=== PATIENT | female | born 1985 | race Caucasian/White ===

== ENCOUNTER 2022-05-02 09:01 | Emergency (ER) | payer SELFPAY ==
[2022-05-02 09:46] LABS: Urine Blood Trace-intact (Negative); Urine Glucose Negative (Negative); Urine Protein Negative (Negative); Urine Specific Gravity 1.025 (1.005-1.030)
--- NOTE | 2022-05-02 09:49 | EDPHYS ---
Physician Documentation [facility] Name: Zeeshan Bynum Age: 36 yrs Sex: Female : 1985 Arrival Date: 05/02/2022 Time: 09:03 Bed Waiting Private MD: ED Physician Ray George HPI: 05/02 09:48 This 36 yrs old Female presents to ER via Ambulatory with complaints of Pain With pm1 Urination. 09:48 The patient presents with urinary symptoms, dysuria. Onset: The symptoms/episode pm1 began/occurred 2 week(s) ago. Modifying factors: The symptoms are alleviated by nothing, the symptoms are aggravated by urinating. Associated signs and symptoms: Pertinent negatives: fever, Abdominal pain, flank pain, nausea/vomiting/diarrhea. Severity of symptoms: in the emergency department the symptoms are unchanged. The patient's method of control includes tubal ligation. The patient has experienced similar episodes in the past, a few times, today's symptoms are similar, to previous UTI. The patient has not recently seen a physician. 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 - Social history:: Smoking status: Patient reports the use of cigarette tobacco products, smokes one pack cigarettes per day. ROS: 09:48 Positive for urinary symptoms, burning with urination, Negative for flank pain, pm1 Abdominal pain. 09:48 Constitutional: Negative for fever, chills, and weight loss, Cardiovascular: Negative for chest pain, palpitations, and edema, Respiratory: Negative for shortness of breath, cough, wheezing, and pleuritic chest pain, Abdomen/GI: Negative for abdominal pain, nausea, vomiting, diarrhea, and constipation, Back: Negative for injury and pain, MS/Extremity: Negative for injury and deformity, Skin: Negative for injury, rash, and discoloration, Neuro: Negative for headache, weakness, numbness, tingling, and seizure. Exam: 09:48 Constitutional: This is a well developed, well nourished patient who is awake, alert, pm1 and in no acute distress. Head/Face: Normocephalic, atraumatic. 09:48 Skin: Warm, dry with normal turgor. Normal color with no rashes, no lesions, and no evidence of cellulitis. MS/ Extremity: Pulses equal, no cyanosis. Neurovascular intact. Full, normal range of motion. 09:48 Cardiovascular: Exam negative for acute changes, Rate: normal, Rhythm: regular, Pulses: no pulse deficits are appreciated. 09:48 Respiratory: Exam negative for acute changes, respiratory distress, shortness of breath. 09:48 Abdomen/GI: Inspection: abdomen appears normal, Palpation: abdomen is soft and non-tender, in all quadrants. 09:48 Back: Exam negative for acute changes, pain, is absent, CVA tenderness, is absent. 09:48 Neuro: Exam negative for acute changes, Orientation: is normal, Mentation: is normal, Motor: moves all fours, Gait: is steady, at a normal pace, without difficulty. Vital Signs: 09:24 BP 103 / 71; Pulse 68; Resp 15; Temp 98.2; Pulse Ox 99% ; Weight 63.5 kg; Height 5 ft. jl7 4 in. (162.56 cm); Pain 8/10; 09:24 Body Mass Index 24.03 (63.50 kg, 162.56 cm) jl7 MDM: 09:18 Counseling: I had a detailed discussion with the patient and/or guardian regarding: the pm1 historical points, exam findings, and any diagnostic results supporting the discharge/admit diagnosis. 09:21 Patient medically screened. pm1 09:28 Data reviewed: vital signs. Data interpreted: Pulse oximetry: on room air is 99 %. pm1 Interpretation: normal. 05/02 09:18 Order name: Urine Microscopic Only; Complete Time: 10:12 pm1 05/02 09:47 Order name: Urine Dipstick-Ancillary; Complete Time: 09:48 EDMS 05/02 09:18 Order name: Urine Dipstick-Ancillary (obtain specimen); Complete Time: 09:44 pm1 05/02 09:18 Order name: Urine Test (obtain specimen); Complete Time: 09:44 pm1 05/02 10:13 Order name: Urine Culture EDMS Administered Medications: No medications were administered Disposition: 14:10 Co-signature as Attending Physician, Ray George DO I was immediately available on-site ms3 in the Emergency Department for consultation in the care of the patient.. Disposition Summary: 05/02/22 09:48 Discharge Ordered Location: Home pm1 Problem: new pm1 Symptoms: have improved pm1 Condition: Stable pm1 Diagnosis - UTI/ Urinary tract infection, site not specified pm1 Followup: pm1 - With: Emergency Department - When: As needed - Reason: Worsening of condition Followup: pm1 - With: Private Physician - When: 2 - 3 days - Reason: Recheck today's complaints, Continuance of care, Re-evaluation by your physician Discharge Instructions: - Discharge Summary Sheet pm1 - Urinary Tract Infection, Adult pm1 Forms: - Medication Reconciliation Form pm1 - Thank You Letter pm1 - Antibiotic Education pm1 - Prescription Opioid Use pm1 Prescriptions: - Bactrim DS 800-160 mg Oral Tablet - take 1 tablet by ORAL route every 12 hours for 10 days; 20 tablet; Refills: 0, pm1 Product Selection Permitted - Pyridium 200 mg Oral Tablet - take 1 tablet by ORAL route every 8 hours for 3 days; 9 tablet; Refills: 0, pm1 Product Selection Permitted Signatures: Dispatcher [employer] EDMS Dedrick Melendrez NP PATTERN WORKER pm1 Gerry Rivers RN RN jl7 Ray George DO DO ms3 Corrections: (The following items were deleted from the chart) 09:28 09:28 Data interpreted: Pulse oximetry: on room air is 100 %. Interpretation: normal. pm1 pm1
--- NOTE | 2022-05-02 09:49 | ER ---
Nurse's Notes [facility] Name: Zeeshan Bynum Age: 36 yrs Sex: Female : 1985 Arrival Date: 05/02/2022 Time: 09:03 Bed Waiting Private MD: Diagnosis: UTI/ Urinary tract infection, site not specified Presentation: 05/02 09:24 Chief complaint: Patient states: Burning with urination x 2 weeks. Coronavirus screen: jl7 At this time, the client does not indicate any symptoms associated with coronavirus-19. Ebola Screen: No symptoms or risks identified at this time. Initial Sepsis Screen: Does the patient meet any 2 criteria? No. Patient's initial sepsis screen is negative. Does the patient have a suspected source of infection? No. Patient's initial sepsis screen is negative. Risk Assessment: Do you want to hurt yourself or someone else? Patient reports no desire to harm self or others. Onset of symptoms was April 18, 2022. 09:24 Method Of Arrival: Ambulatory [facility] 09:24 Acuity: DAHLIA 3 jl7 Triage Assessment: :27 General: Appears in no apparent distress. uncomfortable, Behavior is calm, cooperative, jl7 appropriate for age. Pain: Complains of pain in with urination Pain currently is 8 out of 10 on a pain scale. Neuro: Level of Consciousness is awake, alert, obeys commands, Oriented to person, place, time, situation. Cardiovascular: Patient's skin is warm and dry. : Reports burning with urination. Derm: Skin is pink, warm \T\ dry. 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 - Social history:: Smoking status: Patient reports the use of cigarette tobacco products, smokes one pack cigarettes per day. Vital Signs: 09:24 BP 103 / 71; Pulse 68; Resp 15; Temp 98.2; Pulse Ox 99% ; Weight 63.5 kg; Height 5 ft. jl7 4 in. (162.56 cm); Pain 8/; 09:24 Body Mass Index 24.03 (63.50 kg, 162.56 cm) jl7 ED Course: 09:03 Patient arrived in ED. as 09:10 Dedrick Melendrez NP is PHCP. pm1 09:10 Ray George DO is Attending Physician. pm1 09:27 Triage completed. jl7 09:27 Arm band placed on right wrist. Patient placed in waiting room, Patient notified of jl7 wait time. 09:45 Urine Microscopic Only Sent. mb7 Administered Medications: No medications were administered Outcome: 09:48 Discharge ordered by MD. pm1 10:25 Patient left the ED. pm1 Signatures: Lilo Sena as Dedrick Melendrez NP SAFETY OFFICER pm1 Gerry Rivers RN RN jl7 Herminia Dejesus mbHanny
[2022-05-02 10:11] LABS: Urine Bacteria >50 /HPF (<20)
[2022-05-02 10:30] VITALS: BP 103/71; TEMP 98.2; O2SAT 99
== END 2022-05-02 10:25 | disposition home or self-care (01) ==
LOC: ER 09:01
DX: N39.0 Urinary tract infection, site not specified (principal); F17.210 Nicotine dependence, cigarettes, uncomplicated
CPT/HCPCS: 81003; 81015; 87086; 87088; 99282

== ENCOUNTER 2022-09-20 19:59 | Emergency (ER) | payer OTHER ==
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
--- NOTE | 2022-09-20 21:14 | EDPHYS ---
Physician Documentation [facility] Name: Zeeshan Bynum Age: 36 yrs Sex: Female : 1985 Arrival Date: 09/20/2022 Time: 20:02 Bed 16 Private MD: DU Physician Cruzito Porras HPI: 09/20 21:36 This 36 yrs old Female presents to ER via Ambulatory with complaints of Foot Pain, Leg snw Pain. 21:36 The patient presents with tenderness. The complaints affect the lateral aspect of left snw foot, posterior aspect of left knee, left calf, left Achilles and left heel. Context: The problem was sustained at home, resulted from an unknown cause, the patient can fully bear weight, the patient is able to ambulate, previous site of cellulitis. Onset: The symptoms/episode began/occurred suddenly, and became persistent. Associated signs and symptoms: Pertinent positives: calf tenderness, swelling, warmth. Severity of symptoms: At their worst the symptoms were moderate. The patient has experienced a previous episode, approximately 4 months ago. The patient has not recently seen a physician. 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 Last tetanus immunization: unknown. - Social history:: Smoking status: Patient reports the use of cigarette tobacco products, smokes one pack cigarettes per day. ROS: 21:34 Constitutional: Negative for fever, chills, and weight loss, Eyes: Negative for injury, snw pain, redness, and discharge, ENT: Negative for injury, pain, and discharge, Neck: Negative for injury, pain, and swelling, Cardiovascular: Negative for chest pain, palpitations, and edema, Respiratory: Negative for shortness of breath, cough, wheezing, and pleuritic chest pain, Abdomen/GI: Negative for abdominal pain, nausea, vomiting, diarrhea, and constipation, Back: Negative for injury and pain, : Negative for injury, bleeding, discharge, and swelling, Skin: Negative for injury, rash, and discoloration, Neuro: Negative for headache, weakness, numbness, tingling, and seizure, Psych: Negative for depression, anxiety, suicide ideation, homicidal ideation, and hallucinations. 21:34 MS/extremity: Positive for tenderness, warmth, of the left leg and left foot and heel of left foot and arch of left foot, pruritis. Exam: 21:35 Constitutional: This is a well developed, well nourished patient who is awake, alert, snw and in no acute distress. Head/Face: Normocephalic, atraumatic. Eyes: Pupils equal round and reactive to light, extra-ocular motions intact. Lids and lashes normal. Conjunctiva and sclera are non-icteric and not injected. Cornea within normal limits. Periorbital areas with no swelling, redness, or edema. ENT: Nares patent. No nasal discharge, no septal abnormalities noted. Tympanic membranes are normal and external auditory canals are clear. Oropharynx with no redness, swelling, or masses, exudates, or evidence of obstruction, uvula midline. Mucous membranes moist. Neck: Trachea midline, no thyromegaly or masses palpated, and no cervical lymphadenopathy. Supple, full range of motion without nuchal rigidity, or vertebral point tenderness. No Meningismus. Chest/axilla: Normal chest wall appearance and motion. Nontender with no deformity. No lesions are appreciated. Cardiovascular: Regular rate and rhythm with a normal S1 and S2. No gallops, murmurs, or rubs. Normal PMI, no JVD. No pulse deficits. Respiratory: Lungs have equal breath sounds bilaterally, clear to auscultation and percussion. No rales, rhonchi or wheezes noted. No increased work of breathing, no retractions or nasal flaring. Abdomen/GI: Soft, non-tender, with normal bowel sounds. No distension or tympany. No guarding or rebound. No evidence of tenderness throughout. Back: No spinal tenderness. No costovertebral tenderness. Full range of motion. MS/ Extremity: Pulses equal, no cyanosis. Neurovascular intact. Full, normal range of motion. Neuro: Awake and alert, GCS 15, oriented to person, place, time, and situation. Cranial nerves II-XII grossly intact. Motor strength 5/5 in all extremities. Sensory grossly intact. Cerebellar exam normal. Normal gait. Psych: Awake, alert, with orientation to person, place and time. Behavior, mood, and affect are within normal limits. 21:35 Skin: Appearance: normal except for affected area, area from left arch, heel, and up posterior leg to flexor surface of knee with irritation, evidence of scratching, warmth to distal knee. Vital Signs: 20:15 BP 126 / 89; Pulse 78; Resp 20; Temp 98.0; Pulse Ox 100% ; Weight 70.31 kg; Height 5 kb3 ft. 5 in. (165.10 cm); Pain 6/10; 20:15 Body Mass Index 25.79 (70.31 kg, 165.10 cm) kb3 MDM: 20:47 Patient medically screened. snw Administered Medications: 21:38 Drug: Doxycycline 100 mg Route: PO; jb4 21:40 Follow up: Response: Medication administered at discharge. jb4 21:38 Drug: traMADol 50 mg Route: PO; jb4 21:40 Follow up: Response: Medication administered at discharge. jb4 Disposition: 09/21 02:10 Co-signature as Attending Physician, Cruzito Porras MD I agree with the assessment and rt plan of care. Disposition Summary: 09/20/22 21:13 Discharge Ordered Location: Home snw Condition: Stable snw Diagnosis - Cellulitis of left lower limb snw Followup: snw - With: Emergency Department - When: As needed - Reason: Worsening of condition Followup: snw - With: Private Physician - When: 2 - 3 days - Reason: Recheck today's complaints, Continuance of care, Re-evaluation by your physician Discharge Instructions: - Discharge Summary Sheet snw - Cellulitis, Adult snw - Eczema snw Forms: - Medication Reconciliation Form snw - Thank You Letter snw - Antibiotic Education snw - Prescription Opioid Use snw Prescriptions: - Zyrtec 10 mg Oral Tablet - take 1 tablet by ORAL route once daily As needed; 20 tablet; Refills: 0, snw Product Selection Permitted - Doxycycline Hyclate 100 mg Oral Tablet - take 1 tablet by ORAL route every 12 hours; 20 tablet; Refills: 0, Product snw Selection Permitted - Tramadol 50 mg Oral Tablet - take 1 tablet by ORAL route every 8 hours as needed; 12 tablet; Refills: 0, snw Product Selection Permitted - Pepcid 20 mg Oral Tablet - take 1 tablet by ORAL route once daily; 20 tablet; Refills: 0, Product snw Selection Permitted Signatures: Lesly Murrieta, SERVICES TECH-C SERVICES TECH-Csnw Benji Mo, RN RN jb4 Marsha Waters RN RN kb3 Cruzito Porras MD MD rt
--- NOTE | 2022-09-20 21:14 | ER ---
Nurse's Notes [facility] Name: Zeeshan Bynum Age: 36 yrs Sex: Female : 1985 Arrival Date: 09/20/2022 Time: 20:02 Bed 16 Private MD: Diagnosis: Cellulitis of left lower limb Presentation: 09/20 20:15 Chief complaint: Patient states: Pt reports itching, pain, swelling and redness on the kb3 bottom of her left foot that radiates into her posterior leg. Coronavirus screen: Vaccine status: Patient reports being unvaccinated. Client denies travel out of the [place] in the last 14 days. Ebola Screen: Patient negative for fever greater than or equal to 101.5 degrees Fahrenheit, and additional compatible Ebola Virus Disease symptoms Patient denies exposure to infectious person. Patient denies travel to an Ebola-affected area in the 21 days before illness onset. Initial Sepsis Screen: Does the patient meet any 2 criteria? No. Patient's initial sepsis screen is negative. Does the patient have a suspected source of infection? No. Patient's initial sepsis screen is negative. Risk Assessment: Do you want to hurt yourself or someone else? Patient reports no desire to harm self or others. Onset of symptoms was September 13, 2022. 20:15 Method Of Arrival: Ambulatory kb3 20:15 Acuity: DAHLIA 4 kb3 Triage Assessment: 20:17 General: Appears in no apparent distress. Behavior is calm, cooperative. Pain: kb3 Complains of pain in arch of left foot, heel of left foot, left Achilles and left heel Pain does not radiate. Pain currently is 6 out of 10 on a pain scale. 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 Last tetanus immunization: unknown. - Social history:: Smoking status: Patient reports the use of cigarette tobacco products, smokes one pack cigarettes per day. Screenin:39 Abuse screen: Denies threats or abuse. Nutritional screening: No deficits noted. jb4 Tuberculosis screening: No symptoms or risk factors identified. Fall Risk None identified. Assessment: 21:39 Reassessment: Patient appears in no apparent distress at this time. Patient and/or jb4 family updated on plan of care and expected duration. Pain level reassessed. Patient is alert, oriented x 3, equal unlabored respirations, skin warm/dry/pink. Vital Signs: 20:15 BP 126 / 89; Pulse 78; Resp 20; Temp 98.0; Pulse Ox 100% ; Weight 70.31 kg; Height 5 kb3 ft. 5 in. (165.10 cm); Pain 6/10; 20:15 Body Mass Index 25.79 (70.31 kg, 165.10 cm) kb3 ED Course: 20:02 Patient arrived in ED. bp1 20:14 Lesly Murrieta FNP-C is [facility]. snw 20:14 Cruzito Porras MD is Attending Physician. snw 20:17 Triage completed. kb3 20:17 Arm band placed on right wrist. kb3 21:39 Benji Mo, RN is Primary Nurse. jb4 21:39 Patient has correct armband on for positive identification. Bed in low position. Call jb4 light in reach. Side rails up X 1. 21:39 No provider procedures requiring assistance completed. Patient did not have IV access jb4 during this emergency room visit. Administered Medications: 21:38 Drug: Doxycycline 100 mg Route: PO; jb4 21:40 Follow up: Response: Medication administered at discharge. jb4 21:38 Drug: traMADol 50 mg Route: PO; jb4 21:40 Follow up: Response: Medication administered at discharge. jb4 Medication: 21:39 VIS not applicable for this client. jb4 Outcome: 21:13 Discharge ordered by . snw 21:39 Discharged to home ambulatory. jb4 21:39 Condition: stable 21:39 Discharge instructions given to patient, family, Instructed on discharge instructions, follow up and referral plans. no drinking with medication, no driving heavy equipment, medication usage, Demonstrated understanding of instructions, follow-up care, medications, Prescriptions given X 4. 21:40 Patient left the ED. jb4 Signatures: Lesly Murrieta FNP-C EXECUTIVE ASSOCIATE-Csnw Benji Mo, RN RN jb4 Paniauga, Nancy bp1 Jt, Marsha, RN RN kb3
[2022-09-20] MEDS ORDERED: DOXYCYCLINE 100 MG CAP PO ONE (21:34)
[2022-09-20] MEDS ORDERED: TRAMADOL HCL 50 MG TAB ONE (21:34)
[2022-09-20 21:49] VITALS: BP 126/89; TEMP 98; O2SAT 100
== END 2022-09-20 21:40 | disposition home or self-care (01) ==
LOC: ER 19:59
DX: L03.116 Cellulitis of left lower limb (principal); F17.210 Nicotine dependence, cigarettes, uncomplicated; Z88.7 Allergy status to serum and vaccine
CPT/HCPCS: 99283

== ENCOUNTER → 2024-01-10 | Emergency (ER) | payer SELFPAY ==
--- OUTSIDE RECORDS SUMMARY | 2024-01-10 20:41 | XMS REPORT | Continuity of Care Document ---
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 (Negative) 1+ H Urine Bilirubin (NEGATIVE) NEGATIVE POC Urine Urobilinogen (0.2 - 1.0) NORMAL POC U Leukocyte Esteras (NEGATIVE) 1+ H Patient Discharge Departure Vital Signs/ConditionVital SignsFirst Documented: Result Date Time Pulse Ox 100 08/20 1430 B/P 112/85 08/20 1430 B/P Mean 94 08/20 1430 O2 Delivery Room air 08/20 143 Temp 36.7 08/20 1430 Pulse 83 08/20 1430 Resp 20 08/20 1430 Last Documented: Result Date Time Pulse Ox 100 08/20 1455 B/P 112/85 08/20 1455 B/P Mean 94 08/20 1455 Temp 36.7 08/20 1455 Pulse 83 08/20 1455 Resp 20 08/20 1455 O2 Delivery Room air 08/20 1430 All vital signs available at the time of this entry have been reviewed. Clinical ImpressionClinical ImpressionPrimary Impression: UTI (urinary tract infection) Disposition DecisionDischarge )( Discharged to Home Yes )( Time 1505 )( Date 10/26/22 Discharge/Care PlanCounseled Regarding Diagnosis, Lab results, Prescriptions, Need for follow-up, When to return to ED(Auto) PrescriptionsCurrent Visit ScriptsCEPHALEXIN (KEFLEX) 500 MG PO Q6H CEPHALEXIN (KEFLEX) 500 MG PO Q6H #28 CAPS ONDANSETRON ODT (ZOFRAN ODT) 4 MG PO Q6H PRN PRN NAUSEA/VOMITING ONDANSETRON ODT (ZOFRAN ODT) 4 MG PO Q6H PRN PRN NAUSEA/VOMITING #15 TABS PHENAZOPYRIDINE (PYRIDIUM) 100 MG PO Q8H PRN PRN DYSURIA PHENAZOPYRIDINE (PYRIDIUM) 100 MG PO Q8H PRN PRN DYSURIA #6 TABS TAKE AFTER MEALS. traMADol (ULTRAM) 50 MG PO Q6H PRN PRN ACUTE PAIN traMADol (ULTRAM) 50 MG PO Q6H PRN PRN ACUTE PAIN #15 TABS Patient Instructions Urinary Tract Infections in WomenReferralsProvider Referral: Sadie Villalpando MD Address: [address] [place] [id number] Provider Referral: Sarath Casarez Jr, MD Address: [address] [place] [id number] [place] [address] PCP LIST Discharge NoteI have spoken with the patient and/or caregivers. I have explained the patient'scondition, diagnoses and treatment plan based on the information available to meat this time. I have answered the patient's and/or caregiver's questions and addressed any concerns. The patient and/or caregivers have as good an understanding of the patient's diagnosis, condition and treatment plan as can beexpected at this point. The vital signs have been stable. The patient's condition is stable and appropriate for discharge from the emergency department. The patient will pursue further outpatient evaluation with the primary care physician or other designated or consulting physician as outlined in the discharge instructions. The patient and/or caregivers are agreeable to this planof care and follow-up instructions have been explained in detail. The patient and/or caregivers have received these instructions in written format and have expressed an understanding of the discharge instructions. The patient and/or caregivers are aware that any significant change in condition or worsening of symptoms should prompt an immediate return to this or the closest emergency department or a call to 911. at [id number] #:[id number] OF REPORTEDEmergency department [id number]:00:00G.[id number] ilable for patient [id number]:43:26 [facility] 2022-06-20 19:26:00 [id number]:26:00 [facility]emergency provider reportreport#:[id number] report status: signeddate:06/20/22 time: 1925 patient: maddy luna unit #: [id number]#: [id number] room/bed:age: 36 sex: f pcp phys: no primary or family physicianservice dt: 06/20/22 author: january king md * all edits or amendments must be made on the electronic/computer document * hpi-foot prob/inj generalinitial greet date/time 06/20/221925 presentationchief complaint foot pain l free text hpi notesfree text hpi noteshere with 4 days of left foot pain around the calcaneus area. denies injury. says she has been doing a lot of walking. there is really no fluctuance or swelling but there is a little bit of erythema reminiscent of possibly cellulitis. going to do x-ray to rule out foreign body in the skin or an occultfracture. she denies having medical history. pain worse with walking better with rest. mild to moderate. review of systems ros statementsall systems rev neg except as marked. focused review of systemsconstitutionaldenies: chills, fatigue, fever, lethargy, malaise, recent wt loss, weakness - generalized. musculoskeletalreports: extremity pain. denies: back pain, extremity swelling, joint pain, joint swelling, lumbar pain, myalgia, neck pain, thoracic pain. skinreports: erythema. denies: abrasion, abscess, burn, contusion, diaphoresis, itching, jaundice, laceration, swelling, ulceration. past medical history - adultstated complaint foot painallergiescoded allergies:beeswax (intermediate, swollen throat 05/23/17)diphtheria,pertussis,tetanus, haem. (intermediate, unknown 05/23/17) drug ingredient sariah dip,pert,tet, haem. conj vacc home medicationsactive scriptsacetaminophen (tylenol) 500 mg po q8h prn prn pain acetaminophen (tylenol) 500 mg po q8h prn prn pain #20 tabs prov: 04/06/22bacitracin (bacitracin 500 units/gm topical) 1 applic topical bid bacitracin (bacitracin 500 units/gm topical) 1 applic topical bid #15 gm prov: 04/06/22 reported medicationsibuprofen (motrin) 600 mg po q6h pt reports no significant: past medical history, past surgical history, family history, social history physical exam vital signsvital signsfirst documented: result date time pulse ox 98 06/20 1947 b/p 112/77 06/20 1947 b/p mean 88 06/20 1947 o2 delivery room air 06/20 1947 temp 36.8 06/20 1947 pulse 66 06/20 1947 resp 17 06/20 1947 last documented: result date time pulse ox 98 06/20 1947 b/p 112/77 06/20 1947 b/p mean 88 06/20 1947 o2 delivery room air 06/20 1947 temp 36.8 06/20 1947 pulse 66 06/20 1947 resp 17 06/20 1947 review of vital signs reviewed basic physical exambasic pe gen: well appearing/nad, head: atraumatic/nc, eyes: perrl, conj clear, cv: reg rate rhythm, up ext: no gross abnormal, neuro: alert oriented, neuro: gross movement nl focused pems ankle/foot text/dict notesee the hpi interpretation diagnostics lab results interpretation imaging statementradiographic studies reviewed and considered in the medical decision-making. [facility] coursemedication(s) orderedmedication(s) ordered:anti-infective agents sig/nay start time last medication dose route stop time status admin doxycycline 200 mg x1ed sta 06/20 1933 dc 06/20 monohydrate po 06/20 central nervous system agents sig/nay start time last medication dose route stop time status admin ibuprofen 800 mg x1ed sta 06/20 1933 dc 06/20 po 06/20 patient discharge departure vital signs/conditionvital signsfirst documented: result date time pulse ox 98 06/20 1947 b/p 112/77 06/20 1947 b/p mean 88 06/20 1947 o2 delivery room air 06/20 1947 temp 36.8 06/20 1947 pulse 66 06/20 1947 resp 06/20 last documented: result date time pulse ox 98 06/20 1947 b/p 112/77 06/20 1947 b/p mean 88 06/20 1947 o2 delivery room air 06/20 1947 temp 36.8 06/20 1947 pulse 66 06/20 1947 resp 06/20 all vital signs available at the time of this entry have been reviewed. clinical impressionclinical impressionprimary impression: cellulitis disposition decisiondischarge )( discharged to home yes )( time 2020 )( date 06/20/22 discharge/care plan(auto) prescriptionscurrent visit scriptsdoxycycline hyclate (vibramycin) 100 mg po q12h doxycycline hyclate (vibramycin) 100 mg po q12h #20 caps ibuprofen (motrin) 800 mg po tid prn prn pain ibuprofen (motrin) 800 mg po tid prn prn pain #30 tabs patient instructions ed cellulitis discharge notei have spoken with the patient and/or caregivers. i have explained the patient'scondition, diagnoses and treatment plan based on the information available to meat this time. i have answered the patient's and/or caregiver's questions and addressed any concerns. the patient and/or caregivers have as good an understanding of the patient's diagnosis, condition and treatment plan as can beexpected at this point. the vital signs have been stable. the patient's condition is stable and appropriate for discharge from the emergency department. the patient will pursue further outpatient evaluation with the primary care physician or other designated or consulting physician as outlined in the discharge instructions. the patient and/or caregivers are agreeable to this planof care and follow-up instructions have been explained in detail. the patient and/or caregivers have received these instructions in written format and have expressed an understanding of the discharge instructions. the patient and/or caregivers are aware that any significant change in condition or worsening of symptoms should prompt an immediate return to this or the closest emergency department or a call to 911. electronically signed by january king md on 06/20/22 at 2021rpt #:[id number] of reportEDEmergency department [id number]:26:00G.[id number] ilable for patient [id number]:21:32 [facility] 2022-04-06 13:50:00 [id number] [id number]+[id number]:50:00 [facility]ERG[facility] PROVIDER REPORTREPORT#:[id number] REPORT STATUS: SignedDATE:04/06/22 TIME: 1350 PATIENT: MADDY LUNA UNIT #: [id number]#: [id number] ROOM/BED:AGE: 36 SEX: F PCP PHYS: No Primary or Family PhysicianSERVICE AUTHOR: Godfrey Simon MD * ALL edits or amendments must be made on the electronic/computer document * HPI-Foot Prob/Inj GeneralInitial Greet Date/Time 04/06/22 1335 PresentationChief Complaint Foot injury RHx Obtained From PatientOnset Occurred Just prior to arrival Free Text HPI NotesFree Text HPI [id number] female presents to the ED with foot laceration. Patient states she was cleaning the basement when she accidentally hit her foot on the stove. Causing a superficial laceration to the fourth digit. Minimal amount of bleeding noted. Patient states she is allergic to tetanus. Mild to moderate amount of pain worse with movement and palpation no other injuries noted Review of Systems ROS StatementsAll systems rev neg except as marked. Focused Review of SystemsMusculoskeletalReports: Extremity pain. SkinReports: Laceration. Past Medical History - AdultStated Complaint WOUND TO RT FOOTAllergiesCoded Allergies:beeswax (Intermediate, SWOLLEN THROAT 05/23/17)diphtheria,pertussis,tetanus, Haem. (Intermediate, UNKNOWN 05/23/17) DRUG INGREDIENT Sariah DIP,PERT,TET, HAEM. CONJ VACC Home MedicationsReported MedicationsIBUPROFEN (MOTRIN) 600 MG PO Q6H Past Medical History:Denies: Asthma, Congestive heart failure, COPD, Diabetes mellitus. Additional Medical HistoryPyelonephritisPast Surgical History:Reports: (3). Alcohol Use Denies EtOH useDrug Use Denies recreational drugs Physical Exam Vital SignsVital SignsFirst Documented: Result Date Time Pulse Ox 100 04/06 1345 B/P 109/66 /12 1345 B/P Mean 80 / 1345 O2 Delivery Room air / 1345 Temp 36.8 / 1345 Pulse 63 / 1345 Resp 18 / 1345 Last Documented: Result Date Time Pulse Ox 100 / 1345 B/P 109/66 /12 1345 B/P Mean 80 /12 1345 O2 Delivery Room air / 1345 Temp 36.8 / 1345 Pulse 63 /12 1345 Resp 18 /12 1345 Review of Vital Signs Reviewed Focused PEMS Ankle/Foot Text/Dict NoteSuperficial laceration to the fourth big toe about 0.5 cm on the dorsal lastSkin Skin Color NLNeurologic Neurologic Oriented X3, Speech NL Interpretation Diagnostics Lab Results InterpretationConsiderations Independ review imagingResultsRecent Impressions:RADIOLOGY - XR FOOT 3 + V RT 04/06 1402 Report Impression - Status: SIGNED Entered: 04/06/2022 1412 IMPRESSION: No acute fracture or dislocation. Impression By: Bev Pineda M.D. Point of Care TestingPulse Oximetry Pulse Ox % 98 On: Room air Interpretation Interpreted by me, Pulse oximetry normal Procedures Laceration Management #1Time Spent (minutes) 5Procedure Performed by ED physicianConsent/Setup/Site Prep Verified correct patient, Time-out performed, Hand hygiene observed, Stand sterile technique)( Location of WoundFourth digit toeWound Length (cm) 0.5Wound Preparation Normal salineIrrigation CopiousForeign Body Explore/Removal Explored for foreign body, None foundRepair Skin Topical skin adhesiveEstimated Blood Loss (mL) 1Post-Procedure/Complications Dressing applied, Condition improved, Tolerated procedure well, Patient stable Retained Foreign Body NoteI have spoken with the patient and/or caregivers. I have carefully explored the wound or laceration for a foreign body. Any foreign body identified has been removed, but in some cases it is not possible to identify and remove all foreignbodies. I have explained to the patient and/or caregivers that despite a thorough search, some foreign bodies cannot be easily found or removed. At this point, further searching or attempts at removal may cause worsening tissue damage and more harm than good. I have shared this information with the patient and/or caregivers. In the event that there is a retained foreign body there willbe persistent pain, redness and possibly discharge from the injury site. This has been communicated and the patient may require follow-up with the primary care physician or specialist for the continued search and/or removal at that time. Re-Evaluation MDM Re-Evaluation/ProgressRe-Evaluation/Progress Re-Eval Status Improved Exam Post Tx - General Active, Alert Plan Post Re-Eval Plan discharge Patient Discharge Departure Vital Signs/ConditionVital SignsFirst Documented: Result Date Time Pulse Ox 100 06/ 1345 B/P 109/66 06/12 1345 B/P Mean 80 06/12 1345 O2 Delivery Room air / 1345 Temp 36.8 /12 1345 Pulse 63 06/12 1345 Resp 18 06/ 1345 Last Documented: Result Date Time Pulse Ox 100 06/12 1345 B/P 109/66 06/12 1345 B/P Mean 80 06/12 1345 O2 Delivery Room air 06/12 1345 Temp 36.8 /12 1345 Pulse 63 06/12 1345 Resp 18 /12 1345 All vital signs available at the time of this entry have been reviewed. Condition Stable Clinical ImpressionClinical ImpressionPrimary Impression: Foot lacerationSecondary Impressions: Foot contusion Disposition DecisionDischarge )( Discharged to Home Yes )( Time 1424 )( Date 04/06/22 Discharge/Care PlanCounseled Regarding Diagnosis, Imaging studies, Need for follow-up(Auto) PrescriptionsCurrent Visit ScriptsACETAMINOPHEN (TYLENOL) 500 MG PO Q8H PRN PRN PAIN ACETAMINOPHEN (TYLENOL) 500 MG PO Q8H PRN PRN PAIN #20 TABS FOR PAIN BACITRACIN (BACITRACIN 500 UNITS/GM TOPICAL) 1 APPLIC TOPICAL BID BACITRACIN (BACITRACIN 500 UNITS/GM TOPICAL) 1 APPLIC TOPICAL BID #15 GM Prescriptions Reviewed Risks, Benefits, Alternative treatmentPatient Instructions ED Foot Contusion, ED Laceration, Foot: All ClosuresDeparture FormsALVIN PCP LISTWORK/SCHOOL EXCUSE-CAREGIVER 2 Discharge NoteI have spoken with the patient and/or caregivers. I have explained the patient'scondition, diagnoses and treatment plan based on the information available to meat this time. I have answered the patient's and/or caregiver's questions and addressed any concerns. The patient and/or caregivers have as good an understanding of the patient's diagnosis, condition and treatment plan as can beexpected at this point. The vital signs have been stable. The patient's condition is stable and appropriate for discharge from the emergency department. The patient will pursue further outpatient evaluation with the primary care physician or other designated or consulting physician as outlined in the discharge instructions. The patient and/or caregivers are agreeable to this planof care and follow-up instructions have been explained in detail. The patient and/or caregivers have received these instructions in written format and have expressed an understanding of the discharge instructions. The patient and/or caregivers are aware that any significant change in condition or worsening of symptoms should prompt an immediate return to this or the closest emergency department or a call to 911. Extremity Inj Discharge NoteThe patient is discharged home with supportive care, a plan for pain control, and follow-up instructions that detail what to expect over the next 48 hours andwhat symptoms should prompt immediate return to the ED, including the symptoms of compartment syndrome. Follow-up instructions have been explained in detail tothe patient, and the instructions have been provided in written format. The patient is comfortable with the plan of care and has expressed an understanding of the discharge instructions. The patient is aware that any significant change in condition or worsening of symptoms should prompt an immediate call to the primary or designated physician. If that is not successful the patient should call or return to this or the closest emergency department or call 911. at 0824RPT #:[id number] OF REPORTOzarks Community Hospital [id number]:50:00G.[id number] mnable for patient [id number]:24:42 [facility]"
[2024-01-10 21:16] LABS: Specific Gravity 1.022 (1.005-1.030)
[2024-01-10 21:20] LABS: Specific Gravity 1.022 (1.005-1.030); Sqamous Epithelial <5 /HPF (None Seen); Urine Bacteria 20-50 /HPF (<20); Urine Bilirubin NEGATIVE (Negative); Urine Blood Negative (Negative); Urine Clarity Extremely Turbid (Clear); Urine Color Yellow (Yellow); Urine Culture Reflex Order REFLEXED; Urine Glucose NEGATIVE (Negative); Urine Ketones NEGATIVE (Negative); Urine Microscopic Reflex YN ORDER UMIC; Urine Mucus 1+ /HPF (None Seen); Urine Nitrite 2+ (Negative); Urine Protein NEGATIVE (Negative); Urine Urobilinogen Normal (Normal); Urine WBC 20-50 /HPF (<5); Urine WBC Clump Rare /HPF (None Seen)
--- NOTE | 2024-01-10 23:02 | ER ---
Nurse's Notes [facility] Name: Zeeshan Bynum Age: 38 yrs Sex: Female : 1985 Arrival Date: 01/10/2024 Time: 20:37 Bed 14 Private MD: Diagnosis: UTI/ Urinary tract infection, site not specified Presentation: 01/09 20:50 Chief complaint: Patient states: Pain and burning with urination X1 year. Pt states cm10 that the pain and burning is when she initially starts urinating. Pt states that today when she was in the shower "i felt something that should not be there.". Coronavirus screen: Client denies travel out of the [place] in the last 14 days. At this time, the client does not indicate any symptoms associated with coronavirus-19. Ebola Screen: Patient denies travel to an Ebola-affected area in the 21 days before illness onset. No symptoms or risks identified at this time. Initial Sepsis Screen: Does the patient meet any 2 criteria? No. Patient's initial sepsis screen is negative. Does the patient have a suspected source of infection? No. Patient's initial sepsis screen is negative. Risk Assessment: Do you want to hurt yourself or someone else? Patient reports no desire to harm self or others. Onset of symptoms was January 10, 2024. 20:50 Method Of Arrival: Ambulatory cm10 20:50 Acuity: DAHLIA 4 cm10 Triage Assessment: 20:55 General: Appears in no apparent distress. comfortable, Behavior is calm, cooperative. cm10 Neuro: No deficits noted. Level of Consciousness is awake, alert, Oriented to person, place, time. Respiratory: No deficits noted. Airway is patent Respiratory effort is even, unlabored, Respiratory pattern is regular, symmetrical. Historical: - Allergies: 20:53 Tetanus Immune Globulin; cm10 - Home Meds: 20:53 None [Active]; cm10 - PMHx: 20:53 None; cm10 - PSHx: 20:53 section; cm10 - Immunization history:: Adult Immunizations up to date. - Social history:: Smoking status: Patient reports the use of cigarette tobacco products, smokes one pack cigarettes per day. Screenin:05 [facility] ED Fall Risk Assessment (Adult) History of falling in the last 3 months, me1 including since admission No falls in past 3 months (0 pts) Confusion or Disorientation No (0 pts) Intoxicated or Sedated No (0 pts) Impaired Gait No (0 pts) Mobility Assist Device Used No (0 pt) Altered Elimination No (0 pt) Score/Fall Risk Level 0 - 2 = Low Risk Maintained a safe environment, Provided non-skid footwear, Hourly rounding (assess needs \\T\\ fall precautionary measures) done. Abuse screen: Denies threats or abuse. Nutritional screening: No deficits noted. Tuberculosis screening: No symptoms or risk factors identified. Assessment: 23:05 General: Appears uncomfortable, well groomed, well developed, well nourished, Behavior me1 is calm, cooperative, appropriate for age, Reports pain and burning with urination x 1 year. Pain: Denies pain. Neuro: Level of Consciousness is awake, alert, obeys commands, Oriented to person, place, time, situation, Appropriate for age. Cardiovascular: Capillary refill < 3 seconds Patient's skin is warm and dry. Respiratory: Airway is patent Trachea midline Respiratory effort is even, unlabored, Respiratory pattern is regular, symmetrical. : Reports burning with urination, since one year ago. Vital Signs: 20:50 BP 127 / 99; Pulse 70; Resp 16; Temp 97.1; Pulse Ox 98% on R/A; Weight 79.38 kg (R); cm10 Height 5 ft. 5 in. (R); Pain 1/10; 20:50 Body Mass Index 29.12 (79.38 kg, 165.1 cm) cm10 20:50 Pain Scale: Adult cm10 ED Course: 20:42 Patient arrived in ED. jj6 20:44 Kayli Trinh FNP-C is PHCP. kb 20:44 Darrell Wei is Attending Physician. kb 20:53 Triage completed. cm10 20:55 Arm band placed on Patient placed in waiting room. cm10 21:08 Test, Urine Sent. cm10 21:08 Urinalysis w/ reflexes Sent. cm10 21:08 Urine collected: clean catch specimen. cm10 23:04 Yanet Lee, RN is Primary Nurse. me1 23:05 Patient has correct armband on for positive identification. Bed in low position. Call me1 light in reach. Side rails up X 1. Provided Education on: POC. Verbalized understanding . 23:05 No provider procedures requiring assistance completed. Patient did not have IV access me1 during this emergency room visit. Administered Medications: No medications were administered Medication: 23:05 VIS not applicable for this client. me1 Outcome: 23:01 Discharge ordered by . berto 23:10 Discharged to home ambulatory, jb4 23:10 Condition: stable 23:10 Discharge instructions given to patient, Instructed on discharge instructions, follow up and referral plans. medication usage, Demonstrated understanding of instructions, follow-up care, medications, Prescriptions given X 2, 23:11 Patient left the ED. jb4 Signatures: Kayli Trinh, PRODUCTION COUNTER-C PRODUCTION COUNTER-CkBenji Brady, RN RN jb4 Sadie Guillermoj6 Geneva Sena, RN RN cm10 Yanet Lee, RN RN me1 Corrections: (The following items were deleted from the chart) 23:05 20:50 Chief complaint: Patient states: Pain and burning with urination X1 year. Pt me1 states that the pain and burning is when she initially starts urinating. Pt states that today when she was in the shower "i felt something that should not be there." cm10
--- NOTE | 2024-01-10 23:02 | EDPHYS ---
Physician Documentation [facility] Name: Zeeshan Bynum Age: 38 yrs Sex: Female : 1985 Arrival Date: 01/10/2024 Time: 20:37 Bed 14 Private MD: ED Physician Darrell Wei HPI: 01/09 23:40 This 38 yrs old Female presents to ER via Ambulatory with complaints of Pain With kb Urination, Urinary Retention. 23:41 Patient is a 38-year-old female who presents for dysuria that has been ongoing for more kb than a year. States she has been seen here for this before and was diagnosed with a UTI, completed all antibiotics and symptoms did not get any better. States she has been dealing with the pain because it cost too much to follow-up with a specialist. Came in today because she was taking a shower and felt a lump in vaginal area that was new to her.. Historical: - Allergies: 20:53 Tetanus Immune Globulin; cm10 - Home Meds: 20:53 None [Active]; cm10 - PMHx: 20:53 None; cm10 - PSHx: 20:53 section; cm10 - Immunization history:: Adult Immunizations up to date. - Social history:: Smoking status: Patient reports the use of cigarette tobacco products, smokes one pack cigarettes per day. ROS: 23:40 Constitutional: As per HPI kb Exam: 23:40 Constitutional: This is a well developed, well nourished patient who is awake, alert, kb and in no acute distress. Head/Face: Normocephalic, atraumatic. ENT: Moist Mucous membranes Cardiovascular: Regular rate Respiratory: Respirations even and unlabored. No increased work of breathing. Talking in full sentences Abdomen/GI: Soft, non-tender. No distention Skin: Warm, dry with normal turgor. Normal color. MS/ Extremity: Pulses equal, no cyanosis. Neurovascular intact. Full, normal range of motion. Neuro: Awake and alert, GCS 15, oriented to person, place, time, and situation. Moves all extremities. Normal gait. 23:40 : Pelvic Exam: External exam: is normal, Vital Signs: 20:50 BP 127 / 99; Pulse 70; Resp 16; Temp 97.1; Pulse Ox 98% on R/A; Weight 79.38 kg (R); cm10 Height 5 ft. 5 in. (R); Pain /10; 20:50 Body Mass Index 29.12 (79.38 kg, 165.1 cm) cm10 20:50 Pain Scale: Adult cm10 MDM: 20:44 Patient medically screened. kb 23:40 Differential diagnosis: urinary tract infection, Abscess. Data reviewed: vital signs, kb nurses notes. Counseling: I had a detailed discussion with the patient and/or guardian regarding the historical points, exam findings, and any diagnostic results supporting the discharge/admit diagnosis, lab results, the need for outpatient follow up, an OB/Gyne specialist, a urologist, to return to the emergency department if symptoms worsen or persist or if there are any questions or concerns that arise at home. 01/09 20:45 Order name: Urinalysis w/ reflexes; Complete Time: 21:26 kb 01/09 20:45 Order name: Test, Urine; Complete Time: 21:26 kb 01/09 21:23 Order name: Urine Culture EDMS Administered Medications: No medications were administered Disposition Summary: 01/10/24 23:01 Discharge Ordered Notes: Location: Home kb Condition: Stable kb Diagnosis - UTI/ Urinary tract infection, site not specified kb Followup: kb - With: Emergency Department - When: As needed - Reason: Worsening of condition Followup: kb - With: Private Physician - When: 2 - 3 days - Reason: Recheck today's complaints, Continuance of care, Re-evaluation by your physician Discharge Instructions: - Discharge Summary Sheet kb - Urinary Tract Infection, Adult, [id number] kb Forms: - Medication Reconciliation Form kb - Thank You Letter kb - Antibiotic Education kb - Prescription Opioid Use kb - Patient Portal Instructions kb - Leadership Thank You Letter kb Prescriptions: - Augmentin 875-125 mg Oral Tablet - take 1 tablet ORAL route every 12 hours for 10 days; 20 tablet; Refills: 0, kb Product Selection Permitted - Pyridium 200 mg Oral Tablet - take 1 tablet ORAL route every 8 hours for 3 days; 9 tablet; Refills: 0, kb Product Selection Permitted Signatures: Dispatcher [employer] EDKayli Burks, Geneva Carter, RN RN cm10
[2024-01-10 23:39] VITALS: BP 127/99; TEMP 97.1; O2SAT 98
== END ==
LOC: ER 20:37
DX: N39.0 Urinary tract infection, site not specified (principal); F17.210 Nicotine dependence, cigarettes, uncomplicated; Z88.7 Allergy status to serum and vaccine
CPT/HCPCS: 81001; 81025; 87086; 87088; 99283

== ENCOUNTER 2024-08-18 21:52 | Emergency (ER) | payer BC, SELFPAY ==
--- OUTSIDE RECORDS SUMMARY | 2024-08-18 21:56 | XMS REPORT | Continuity of Care Document ---
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 systems rev neg except as marked. focused review of systems constitutional denies: chills, fatigue, fever, lethargy, malaise, recent wt loss, weakness - generalized. musculoskeletal reports: extremity pain. denies: back pain, extremity swelling, joint pain, joint swelling, lumbar pain, myalgia, neck pain, thoracic pain. skin reports: erythema. denies: abrasion, abscess, burn, contusion, diaphoresis, itching, jaundice, laceration, swelling, ulceration. past medical history - adult stated complaint foot pain allergies coded allergies: beeswax (intermediate, swollen throat 05/23/17) diphtheria,pertussis,tetanus, haem. (intermediate, unknown 05/23/17) drug ingredient sariah dip,pert,tet, haem. conj vacc home medications active scripts acetaminophen (tylenol) 500 mg po q8h prn prn pain acetaminophen (tylenol) 500 mg po q8h prn prn pain #20 tabs prov: 04/06/22 bacitracin (bacitracin 500 units/gm topical) 1 applic topical bid bacitracin (bacitracin 500 units/gm topical) 1 applic topical bid #15 gm prov: 04/06/22 reported medications ibuprofen (motrin) 600 mg po q6h pt reports no significant: past medical history, past surgical history, family history, social history physical exam vital signs vital signs first documented: result date time pulse ox 98 [...] review of vital signs reviewed basic physical exam basic pe gen: well appearing/nad, head: atraumatic/nc, eyes: perrl, conj clear, cv: reg rate rhythm, up ext: no gross abnormal, neuro: alert oriented, neuro : gross movement nl focused pe ms ankle/foot text/dict note see the hpi interpretation diagnostics lab results interpretation imaging statement radiographic studies reviewed and considered in the medical decision-making. re-evaluation mdm ed course medication(s) ordered medication(s) ordered: anti-infective agents sig/nay start time last medication dose route stop time status admin doxycycline 200 mg x1ed sta 06/20 1933 dc 06/20 monohydrate po 06/20 central nervous system agents sig/nay start time last medication dose route stop time status admin ibuprofen 800 mg x1ed sta 06/20 1933 dc 06/20 po 06/20 patient discharge departure vital signs/condition vital signs first documented: result date time pulse ox 98 [...] of this entry have been reviewed. clinical impression clinical impression primary impression: cellulitis disposition decision discharge )( discharged to home yes )( time 2020 )( date 06/20/22 discharge/care plan (auto) prescriptions current visit scripts doxycycline hyclate (vibramycin) 100 mg po q12h doxycycline hyclate (vibramycin) 100 mg po q12h #20 caps ibuprofen (motrin) 800 mg po tid prn prn pain ibuprofen (motrin) 800 mg po tid prn prn pain #30 tabs patient instructions ed cellulitis discharge note i have spoken with the patient and/or caregivers. i have explained the patient's condition, diagnoses and treatment plan based on the information available to me at this time. i have answered the patient's and/or caregiver's questions and addressed any concerns. the patient and/or caregivers have as good an understanding of the patient's diagnosis, condition and treatment plan as can be expected at this point. the vital signs have been stable. the patient's condition is stable and appropriate for discharge from the emergency department. the patient will pursue further outpatient evaluation with the primary care physician or other designated or consulting physician as outlined in the discharge instructions. the patient and/or caregivers are agreeable to this plan of care and follow-up instructions have been explained [...] by january king md on 06/20/22 at 2020 rpt #:[id number] end of report [facility] 2022-04-06 13:50:00 [facility] ([facility]) EMERGENCY PROVIDER REPORT REPORT#:[id number] REPORT STATUS: Signed DATE:04/06/22 TIME: 1350 PATIENT: MADDY LUNA UNIT #: [id number] ROOM/BED: AGE: 36 SEX: F PCP PHYS: No Primary or Family Physician SERVICE AUTHOR: Godfrey Simon MD * ALL edits or amendments must be made on the electronic/computer document * HPI-Foot Prob/Inj General Initial Greet Date/Time 04/06/22 1335 Presentation Chief Complaint Foot injury R Hx Obtained From Patient Onset Occurred Just prior to arrival Free Text HPI Notes Free Text HPI Notes 36-year-old female presents to the ED with foot laceration. Patient states she was cleaning the basement when she accidentally hit her foot on the stove. Causing a superficial laceration to the fourth digit. Minimal amount of bleeding noted. Patient states she is allergic to tetanus. Mild to moderate amount of pain worse with movement and palpation no other injuries noted Review of Systems ROS Statements All systems rev neg except as marked. Focused Review of Systems Musculoskeletal Reports: Extremity pain. Skin Reports: Laceration. Past Medical History - Adult Stated Complaint WOUND TO RT FOOT Allergies Coded Allergies: beeswax (Intermediate, SWOLLEN THROAT 05/23/17) diphtheria,pertussis,tetanus, Haem. (Intermediate, UNKNOWN 05/23/17) DRUG INGREDIENT Sariah DIP,PERT,TET, HAEM. CONJ VACC Home Medications Reported Medications IBUPROFEN (MOTRIN) 600 MG PO Q6H Past Medical History: Denies: Asthma, Congestive heart failure, COPD, Diabetes mellitus. Additional Medical History Pyelonephritis Past Surgical History: Reports: (3). Alcohol Use Denies EtOH use Drug Use Denies recreational drugs Physical Exam Vital Signs Vital Signs First Documented: Result Date Time Pulse Ox 100 04/06 1345 B/P 109/66 04/06 1345 B/P Mean 80 04/06 1345 O2 Delivery Room air 04/06 1345 Temp 36.8 04/06 1345 Pulse 63 04/06 1345 Resp 18 04/06 1345 Last Documented: Result Date Time Pulse Ox 100 04/06 1345 B/P 109/66 04/06 1345 B/P Mean 80 04/06 1345 O2 Delivery Room air 04/06 1345 Temp 36.8 04/06 1345 Pulse 63 04/06 1345 Resp 18 04/06 1345 Review of Vital Signs Reviewed Focused PE MS Ankle/Foot Text/Dict Note Superficial laceration to the fourth big toe about 0.5 cm on the dorsal last Skin Skin Color NL Neurologic Neurologic Oriented X3, Speech NL Interpretation Diagnostics Lab Results Interpretation Considerations Independ review imaging Results Recent Impressions: RADIOLOGY - XR FOOT 3 + V RT 04/06 1402 Report Impression - Status: SIGNED Entered: 04/06/2022 1412 IMPRESSION: No acute fracture or dislocation. Impression By: Bev Pineda M.D. Point of Care Testing Pulse Oximetry Pulse Ox % 98 On: Room air Interpretation Interpreted by me, Pulse oximetry normal Procedures Laceration Management #1 Time Spent (minutes) 5 Procedure Performed by ED physician Consent/Setup/Site Prep Verified correct patient, Time-out performed, Hand hygiene observed, Stand sterile technique )( Location of Wound Fourth digit toe Wound Length (cm) 0.5 Wound Preparation Normal saline Irrigation Copious Foreign Body Explore/Removal Explored for foreign body, None found Repair Skin Topical skin adhesive Estimated Blood Loss (mL) 1 Post-Procedure/Complications Dressing applied, Condition improved, Tolerated procedure well, Patient stable Retained Foreign Body Note I have spoken with the patient and/or caregivers. I have carefully explored the wound or laceration for a foreign body. Any foreign body identified has been removed, but in some cases it is not possible to identify and remove all foreign bodies. I have explained to the patient and/or caregivers that despite a thorough search, some foreign bodies cannot be easily found or removed. At this point, further searching or attempts at removal may cause worsening tissue damage and more harm than good. I have shared this information with the patient and/or caregivers. In the event that there is a retained foreign body there will be persistent pain, redness and possibly discharge from the injury site. This has been communicated and the patient may require follow-up with the primary care physician or specialist for the continued search and/or removal at that time. Re-Evaluation MDM Re-Evaluation/Progress Re-Evaluation/Progress Re-Eval Status Improved Exam Post Tx - General Active, Alert Plan Post Re-Eval Plan discharge Patient Discharge Departure Vital Signs/Condition Vital Signs First Documented: Result Date Time Pulse Ox 100 / 1345 B/P 109/66 06/12 1345 B/P Mean 80 06/12 1345 O2 Delivery Room air / 1345 Temp 36.8 / 1345 Pulse 63 06/12 1345 Resp 18 04/06 1345 Last Documented: Result Date Time Pulse Ox 100 06/ 1345 B/P 109/66 06/12 1345 B/P Mean 80 06/12 1345 O2 Delivery Room air / 1345 Temp 36.8 /12 1345 Pulse 63 /12 1345 Resp 18 04/06 1345 All vital signs available at the time of this entry have been reviewed. Condition Stable Clinical Impression Clinical Impression Primary Impression: Foot laceration Secondary Impressions: Foot contusion Disposition Decision Discharge )( Discharged to Home Yes )( Time 1424 )( Date 04/06/22 Discharge/Care Plan Counseled Regarding Diagnosis, Imaging studies, Need for follow-up (Auto) Prescriptions Current Visit Scripts ACETAMINOPHEN (TYLENOL) 500 MG PO Q8H PRN PRN PAIN ACETAMINOPHEN (TYLENOL) 500 MG PO Q8H PRN PRN PAIN #20 TABS FOR PAIN BACITRACIN (BACITRACIN 500 UNITS/GM TOPICAL) 1 APPLIC TOPICAL BID BACITRACIN (BACITRACIN 500 UNITS/GM TOPICAL) 1 APPLIC TOPICAL BID #15 GM Prescriptions Reviewed Risks, Benefits, Alternative treatment Patient Instructions ED Foot Contusion, ED Laceration, Foot: All Closures Departure Forms [facility] PCP LIST WORK/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 I have explained the patient's condition, diagnoses and treatment plan based on the information available to me at this time. I have answered the patient's and/or caregiver's questions and addressed any concerns. The patient and/or caregivers have as good an understanding of the patient's diagnosis, condition and treatment plan as can be expected at this point. The vital signs have been stable. The patient's condition is stable and appropriate for discharge from the emergency department. The patient will pursue further outpatient evaluation with the primary care physician or other designated or consulting physician as outlined in the discharge instructions. The patient and/or caregivers are agreeable to this plan of care and follow-up instructions have been explained [...] a call to 911. Extremity Inj Discharge Note The patient is discharged home with supportive care, a plan for pain control, and follow-up instructions that detail what to expect over the next 48 hours and what symptoms should prompt immediate return to the ED, including the symptoms of compartment syndrome. Follow-up instructions have been explained in detail to the patient, and the instructions have been provided [...] closest emergency department or call 911. at 0824 [facility] #:[id number] END OF REPORT [facility]"
[2024-08-18] MEDS ORDERED: ONDANSETRON 4 MG/2 ML VIAL ONE (23:49)
[2024-08-18] MEDS ORDERED: LIDOCAINE 2% MPF 5 ML VIAL ONE (23:49)
[2024-08-18] MEDS ORDERED: MORPHINE 4 MG/ML SYR ONE (23:50)
[2024-08-19 01:06] LABS: Absolute Basophils 0.1 K/uL (0-0.5); Absolute Eosinophils 0.6 K/uL (0-0.5); Absolute Lymphocytes (CBC) 3.2 K/uL (0.7-4.9); Absolute Monocytes 0.8 K/uL (0.1-1.3); Absolute Neutrophil 8.4 K/uL (1.8-8.0); Basophils % 0.8 % (0-1.3); Eosinophils % 4.3 % (0-4.4); Hematocrit 36.6 % (36.0-45.0); Hemoglobin 12.1 g/dL (12.0-15.0); Lymphocytes % 24.5 % (15.3-44.8); MCH 31.3 pg (27.0-35.0); MCV 94.8 fL (80-100); MPV 8.8 fL (7.6-11.3); Monocytes % 5.9 % (3.3-12.3); Neutrophils % 64.5 % (41.7-73.7); Platelets 320 thou/uL (152-406); RBC Red Blood Cell Count 3.86 M/uL (3.86-4.86); Red Cell Distribution Width 13.9 % (12.1-15.2)
[2024-08-19 01:11] LABS: ALT/SGPT 19 U/L (13-56); Albumin 3.6 g/dL (3.4-5.0); Albumin/Globulin Ratio 1.1 (1.1-1.8); Alkaline Phosphatase 73 U/L (45-117); Anion Gap 7.7 mEq/L (5.0-15.0); BUN Blood Urea Nitrogen 19 mg/dL (7-18); Bicarbonate 28 mEq/L (21-32); Bilirubin Total 0.2 mg/dL (0.2-1.0); Globulin 3.3 g/dL (2.3-3.5); Glomerular Filtration Rate 99 ml/min (=/>90); Glucose Level 110 mg/dL (74-106); Potassium 3.7 mEq/L (3.5-5.1); Protein, Total 6.9 g/dL (6.4-8.2); Sodium Level 140 mEq/L (136-145)
[2024-08-19 01:15] LABS: AST/SGOT < 10 U/L (15-37)
--- NOTE | 2024-08-19 01:17 | EDPHYS ---
Physician Documentation [facility] Name: Zeeshan Bynum Age: 38 yrs Sex: Female : 1985 Arrival Date: 08/18/2024 Time: 21:52 Bed 25 Private MD: ED Physician Sharad Tinajero HPI: 08/18 23:00 This 38 yrs old Female presents to ER via Ambulatory with complaints of ingrown hair on cp vag area. 23:00 The patient presents with pain and abscess right vaginal area. cp 23:00 Onset: The symptoms/episode began/occurred for past several days. cp 23:00 Associated signs and symptoms: Pertinent negatives: fever, vaginal discharge. 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 - Infectious Disease History:: Denies. - Social history:: Smoking status: Patient reports the use of cigarette tobacco products, smokes one-half pack cigarettes per day. ROS: 23:05 Constitutional: HX per hpi cp Exam: 23:10 Constitutional: The patient appears in no acute distress, alert, awake, non-toxic, well cp developed, well nourished, uncomfortable, 23:10 Head/Face: Normocephalic, atraumatic. cp 23:10 Cardiovascular: Rate: normal, 23:10 Respiratory: the patient does not display signs of respiratory distress, Respirations: normal, no use of accessory muscles, no retractions, labored breathing, is not present, Breath sounds: are clear throughout, no decreased breath sounds, no stridor, no wheezing, 23:10 Abdomen/GI: Inspection: abdomen appears normal, Palpation: abdomen is soft and non-tender, in all quadrants, 23:10 : Pelvic Exam: External exam: swelling, erythema, abscess noted right labia majora, discharge, is not appreciated, the nurse was present for the exam, Vital Signs: 22:51 BP 117 / 84; Pulse 82; Resp 17 S; Temp 97.9; Pulse Ox 100% on R/A; Weight 77.11 kg; ha1 Height 5 ft. 3 in. ; Pain 5/10; 08/19 00:10 BP 111 / 79; Pulse 76; Resp 18; Pulse Ox 100% on R/A; tl4 02:10 BP 117 / 81; Pulse 75; Resp 18 S; Temp 98.1(T); Pulse Ox 100% on R/A; ha1 08/18 22:51 Body Mass Index 30.11 (77.11 kg, 160.02 cm) ha1 08/18 22:51 Pain Scale: Adult [facility] Procedures: 00:35 I \T\ D: Incision and drainage was performed for an abscess of the right labia majora cp Prepped with Betadine, Anesthetized with 5 ml's 2% Lidocaine. Incised with #11 blade. Drained small amount purulent fluid. Packed with iodoform gauze, Dressing: sterile 4x4 gauze, the patient tolerated the procedure well. MDM: 08/18 22:56 Medical Screening Exam initiated cp 08/19 01:16 Data reviewed: vital signs, nurses notes, and as a result, I will discharge patient. 01:16 Differential diagnosis: pelvic inflammatory disease, urinary tract infection, abscess, cp cellulitis. Counseling: I had a detailed discussion with the patient and/or guardian regarding the historical points, exam findings, and any diagnostic results supporting the discharge/admit diagnosis, the need for outpatient follow up, an OB/Gyne specialist, to return to the emergency department if symptoms worsen or persist or if there are any questions or concerns that arise at home. Response to treatment: the patient's symptoms have markedly improved after treatment, and as a result, I will discharge patient. 08/18 22:56 Order name: CBC with Diff cp 08/18 22:56 Order name: CMP cp 08/18 22:56 Order name: Pelvic Exam Setup; Complete Time: 00:09 cp 08/18 22:56 Order name: IV Saline Lock; Complete Time: 00:09 cp 08/1856 Order name: Labs collected and sent; Complete Time: 00:09 cp 08/18 23:30 Order name: I\T\D Setup; Complete Time: 00:08 cp Administered Medications: 00:09 Drug: morphine IVP or IV 4 mg IVP once over 4 mins Route: IVP; Infused Over: 4 mins; tl4 Site: right antecubital; 00:33 Follow up: Response: No adverse reaction; Marked relief of symptoms; Pain is decreased; ha1 RASS: Alert and Calm (0) 00:09 Drug: Ondansetron IVP 4 mg IVP once; over 2 minutes Route: IVP; Infused Over: 2 mins; tl4 Site: right antecubital; 00:33 Follow up: Response: No adverse reaction; Marked relief of symptoms ha1 01:00 Drug: Lidocaine Infiltration (2 %) 10 ml 5 ml Infiltration once; to bedside Volume: 5 ha1 ml; Route: Infiltration; 02:00 Follow up: Response: No adverse reaction ha1 02:00 Drug: Rocephin IV 1 grams IV at calculated rate once; Given slow IV push per pharmacy ha1 instructions {Note: given IM left bastus later as ordered by provider after patient IV not working .} Route: IV; Rate: calculated rate; Site: Other; 02:10 Follow up: Response: No adverse reaction; IV Status: Completed infusion ha1 02:00 Drug: AZITHromycin PO 1 grams PO once Route: PO; ha1 02:10 Follow up: Response: No adverse reaction ha1 Disposition: 20:16 Co-signature as Attending Physician, Sharad Tinajero MD I agree with the assessment sp4 and plan of care. I reviewed the patient's care provided by the Advanced Practice Provider and agree with the diagnosis and treatment plan. Disposition Summary: 08/19/24 01:17 Discharge Ordered Notes: Location: Home cp Problem: new cp Symptoms: have improved cp Condition: Stable cp Diagnosis - Abscess of Bartholin's gland cp Followup: cp - With: Alison Arzate MD - When: 1 - 2 days - Reason: Recheck today's complaints Discharge Instructions: - Discharge Summary Sheet cp - Bartholin's Cyst cp - Incision and Drainage cp - Incision and Drainage, Care After cp Forms: - Medication Reconciliation Form cp - Antibiotic Education cp - Prescription Opioid Use cp - Patient Portal Instructions cp - Leadership Thank You Letter cp Prescriptions: - Anaprox DS 550 mg Oral Tablet - take 1 tablet ORAL route every 12 hours As needed; 20 tablet; Refills: 0, cp Product Selection Permitted - Cephalexin 500 mg Oral Capsule - take 1 capsule ORAL route every 8 hours for 10 days; 30 capsule; Refills: 0, cp Product Selection Permitted - Doxycycline Hyclate 100 mg Oral Tablet - take 1 tablet ORAL route every 12 hours; 20 tablet; Refills: 0, Product cp Selection Permitted Signatures: Dispatcher [employer] Mika Curry PA PA cp Ayala, Heidy RN RN ha1 Sharad Tinajero MD MD sp4 Florentino Cochran RN RN tl4
--- NOTE | 2024-08-19 01:17 | ER ---
Nurse's Notes [facility] Name: Zeeshan Bynum Age: 38 yrs Sex: Female : 1985 Arrival Date: 08/18/2024 Time: 21:52 Bed 25 Private MD: Diagnosis: Abscess of Bartholin's gland Presentation: 08/18 22:51 Chief complaint: Patient states: ingrown hair in the vaginal area. Coronavirus screen: ha1 At this time, the client does not indicate any symptoms associated with coronavirus-19. Ebola Screen: No symptoms or risks identified at this time. Initial Sepsis Screen: Does the patient meet any 2 criteria? No. Patient's initial sepsis screen is negative. Does the patient have a suspected source of infection? No. Patient's initial sepsis screen is negative. Risk Assessment: Do you want to hurt yourself or someone else? Patient reports no desire to harm self or others. Onset of symptoms was August 18, 2024. 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 - Infectious Disease History:: Denies. - Social history:: Smoking status: Patient reports the use of cigarette tobacco products, smokes one-half pack cigarettes per day. Screenin:53 [facility] ED Fall Risk Assessment (Adult) History of falling in the last 3 months, ha1 including since admission No falls in past 3 months (0 pts) Confusion or Disorientation No (0 pts) Intoxicated or Sedated No (0 pts) Impaired Gait No (0 pts) Mobility Assist Device Used No (0 pt) Altered Elimination No (0 pt) Score/Fall Risk Level 0 - 2 = Low Risk Oriented to surroundings, Maintained a safe environment, Educated pt \T\ family on fall prevention, incl call for assistance when getting out of bed, Hourly rounding (assess needs \T\ fall precautionary measures) done. Abuse screen: Denies threats or abuse. Denies injuries from another. Nutritional screening: No deficits noted. Tuberculosis screening: No symptoms or risk factors identified. Assessment: 08/19 00:09 General: Appears in no apparent distress. Behavior is calm, cooperative. Pain: tl4 Complains of pain in groin. Neuro: Level of Consciousness is awake, alert, obeys commands, Oriented to person, place, time, situation. Cardiovascular: Capillary refill < 3 seconds Patient's skin is warm and dry. Respiratory: Airway is patent Respiratory effort is even, unlabored, Respiratory pattern is regular, symmetrical, Breath sounds are clear bilaterally. GI: No signs and/or symptoms were reported involving the gastrointestinal system. : Reports painful, swollen bump on her vagina. EENT: No signs and/or symptoms were reported regarding the EENT system. Derm: No signs and/or symptoms reported regarding the dermatologic system. Musculoskeletal: No signs and/or symptoms reported regarding the musculoskeletal system. Vital Signs: 08/18 22:51 BP 117 / 84; Pulse 82; Resp 17 S; Temp 97.9; Pulse Ox 100% on R/A; Weight 77.11 kg; ha1 Height 5 ft. 3 in. ; Pain 5/10; 08/19 00:10 BP 111 / 79; Pulse 76; Resp 18; Pulse Ox 100% on R/A; tl4 02:10 BP 117 / 81; Pulse 75; Resp 18 S; Temp 98.1(T); Pulse Ox 100% on R/A; ha1 08/18 22:51 Body Mass Index 30.11 (77.11 kg, 160.02 cm) ha1 08/18 22:51 Pain Scale: Adult ha1 ED Course: 08/18 22:01 Patient arrived in ED. gm2 22:27 Mika Bowen PA is PHCP. cp 22:27 Sharad Tinajero MD is Attending Physician. cp 22:53 Triage completed. ha1 08/19 00:00 Inserted saline lock: 20 gauge in right antecubital area, using aseptic technique. ha1 Blood collected. Flushed with 10 mL NS. 00:09 CBC with Diff Sent. tl4 00:09 CMP Sent. tl4 00:11 Patient has correct armband on for positive identification. Placed in gown. Bed in low tl4 position. Call light in reach. Side rails up X 1. Adult w/ patient. Provided Education on: ed process, call shin. Client placed on continuous cardiac and pulse oximetry monitoring. NIBP monitoring applied. Door closed. Noise minimized. Lights dimmed. Moved to private room. Warm blanket given. 00:11 Arm band placed on right wrist. tl4 00:40 IV discontinued, intact, bleeding controlled, No redness/swelling at site. Pressure ha1 dressing applied. 01:16 Alison Arzate MD is Referral Physician. cp 02:10 No provider procedures requiring assistance completed. ha1 Administered Medications: 00:09 Drug: morphine IVP or IV 4 mg IVP once over 4 mins Route: IVP; Infused Over: 4 mins; tl4 Site: right antecubital; 00:33 Follow up: Response: No adverse reaction; Marked relief of symptoms; Pain is decreased; ha1 RASS: Alert and Calm (0) 00:09 Drug: Ondansetron IVP 4 mg IVP once; over 2 minutes Route: IVP; Infused Over: 2 mins; tl4 Site: right antecubital; 00:33 Follow up: Response: No adverse reaction; Marked relief of symptoms ha1 01:00 Drug: Lidocaine Infiltration (2 %) 10 ml 5 ml Infiltration once; to bedside Volume: 5 ha1 ml; Route: Infiltration; 02:00 Follow up: Response: No adverse reaction ha1 02:00 Drug: Rocephin IV 1 grams IV at calculated rate once; Given slow IV push per pharmacy ha1 instructions {Note: given IM left bastus later as ordered by provider after patient IV not working .} Route: IV; Rate: calculated rate; Site: Other; 02:10 Follow up: Response: No adverse reaction; IV Status: Completed infusion ha1 02:00 Drug: AZITHromycin PO 1 grams PO once Route: PO; ha1 02:10 Follow up: Response: No adverse reaction ha1 Medication: 00:11 VIS not applicable for this client. tl4 Outcome: 01:17 Discharge ordered by . cp 02:10 Patient left the ED. ha1 02:10 Condition: stable ha1 02:10 Discharged to home ambulatory, with family, ha1 02:10 Discharge instructions given to patient, family, Instructed on discharge instructions, follow up and referral plans. medication usage, wound care, Demonstrated understanding of instructions, follow-up care, medications, wound care, Prescriptions given X 3, Signatures: Page, Mika, Ledy Plascencia cp RN RN ha1 Marisol Zamarripa gm2 Florentino Cochran RN RN tl4 Corrections: (The following items were deleted from the chart) 07:36 02:19 Patient left the ED. ha1 ha1
[2024-08-19] MEDS ORDERED: CEFTRIAXONE 1000 MG/VIAL ONE (02:10)
[2024-08-19] MEDS ORDERED: AZITHROMYCIN 250 MG TAB ONE (02:10)
[2024-08-19] MEDS ORDERED: WATER FOR INJ,STERILE 10 ML ONE (02:11)
[2024-08-19 11:44] VITALS: TEMP 97.9; O2SAT 100
[2024-08-19 11:49] VITALS: BP 111/79
== END 2024-08-19 02:19 | disposition home or self-care (01) ==
LOC: ER 21:52
PROC: 0U9LXZZ Drainage of Vestibular Gland, External Approach (ICD-10-PCS; principal; 2024-08-19)
DX: N75.1 Abscess of Bartholin's gland (principal)
CPT/HCPCS: 36415; 80053; 85025; 99284; J0696; J2003; J2405